=== PATIENT | female | born 1985 | race Two or more races ===

== ENCOUNTER 2016-12-16 15:46 | Emergency (ER) | payer MEDICAID, OTHER ==
[2016-12-16 15:53] VITALS: TEMP 97.7
[2016-12-16] MEDS ORDERED: IBUPROFEN 600 MG TAB PO ONE (16:01)
--- NOTE | 2016-12-16 16:46 | EDPHY ---
H & P Time Seen by Provider: 12/16/16 16:29 HPI/ROS: CHIEF COMPLAINT: Back pain HISTORY OF PRESENT ILLNESS: Patient is a 31-year-old female who presents to the emergency department with right mid back pain. It started 1 week ago. It is slowly progressed. It is worse with deep breath and movement. She has no cough, shortness of breath or fever. No leg pain or swelling. No recent travel. No control or hormone therapy. She does not smoke. She does not recall an injury. She has no numbness or tingling. She denies dysuria or frequency. No hematuria. Last menstrual period was 3 months ago. She states her menses are normally irregular and sometimes she does not have a period for 6 months. REVIEW OF SYSTEMS: My complete review of systems is negative except as mentioned in the HPI. Past Medical/Surgical History: Includes prediabetes Past surgical history: Negative Social history: The patient does not smoke Smoking Status: Never smoked Physical Exam: Vitals noted. 126/86, 96, 18, 96% on room air, 36.5 GENERAL: Well-appearing, in no acute distress, alert. HEENT: Eyes normal to inspection, normal pharynx, no signs of dehydration. NECK: No thyromegaly, no lymphadenopathy, supple. RESPIRATORY: Clear to auscultation bilaterally, no rales, rhonchi or wheezing. CVS: Regular rate and rhythm, no rubs, murmurs, or gallops. ABDOMEN: Soft, nontender, nondistended, no organomegaly. BACK: Normal to inspection, no CVA tenderness. Patient has mild right mid back tenderness to palpation. This replicates her pain. I cannot palpate a mass or crepitus. SKIN: Normal color, no rash, warm, dry. No pallor. EXTREMITIES: No pedal edema, no calf tenderness, no Homans sign or cords, no joint swelling. NEURO/PSYCH: Alert and oriented, normal mood and affect, normal motor sensory exam. Constitutional: Initial Vital Signs Temperature (C) 36.5 C 12/16/16 15:50 Heart Rate 96 12/16/16 15:50 Respiratory Rate 18 12/16/16 15:50 Blood Pressure 126/86 H 12/16/16 15:50 O2 Sat (%) 96 12/16/16 15:50 O2 Delivery Mode Room Air Allergies/Adverse Reactions: Penicillins Allergy (Verified 12/16/16 15:54) Home Medications: Medication Instructions Recorded Cyclobenzaprine [Flexeril] 10 mg PO TID #15 tab 12/16/16 Hydrocodone/APAP 5/325 [[place] 1 - 2 tab PO Q4 #13 tab 12/16/16 5/325 (RX)] metFORMIN SR 12/16/16 Medical Decision Making - Diagnostics Imaging Results: Imaging Impressions Chest X-Ray 12/16/16 17:32 Impression: Chest negative for acute cardiopulmonary abnormality. ED Course/Re-evaluation: In the emergency department I discussed possible etiologies with my patient. I answered all her questions. Laboratory studies were ordered. I will await test before imaging. Patient was given Motrin 600 mg in triage. I gave the patient Valium 5 mg IV. I reviewed the patient's laboratory studies. Her D-dimer was negative. Her was negative. The chest x-ray was ordered. Patient states she was feeling better on recheck. Chest x-ray: No acute disease noted. Please refer the dictated report by the radiologist. 1800: I discussed the results with the patient. I answered all her questions. On recheck the patient was doing well. She was able to breathe better with no pleuritic pain. She was given warnings prior to leaving. She will return with worsening symptoms. Differential Diagnosis: Differential includes but is not limited to PE, pneumonia, pneumothorax, hemothorax, pleurisy, ACS, pyelonephritis, musculoskeletal strain - Data Points Laboratory Results: Laboratory Results 12/16/16 16:55 12/16/16 16:55 12/16/16 12/16/16 12/16/16 16:55 16:55 16:55 WBC RBC Hgb Hct MCV MCH MCHC RDW Plt Count MPV Neut % (Auto) Lymph % (Auto) [place] % (Auto) Eos % (Auto) Baso % (Auto) Nucleat RBC Rel Count Absolute Neuts (auto) Absolute Lymphs (auto) Absolute Monos (auto) Absolute Eos (auto) Absolute Basos (auto) Absolute Nucleated RBC Immature Gran % Immature Gran # D-Dimer 0.39 ug/mLFEU ug/mLFEU (0.00-0.50) Sodium 141 mEq/L mEq/L (134-144) Potassium 4.1 mEq/L mEq/L (3.5-5.2) Chloride 101 mEq/L mEq/L (97-110) Carbon Dioxide 23 mEq/l mEq/l (22-31) Anion Gap 17 mEq/L H mEq/L (8-16) BUN 11 mg/dL mg/dL (7-23) Creatinine 0.5 mg/dL L mg/dL (0.6-1.0) Estimated GFR > 60 Glucose 157 mg/dL H mg/dL (70-100) Calcium 8.9 mg/dL mg/dL (8.5-10.4) Beta HCG, Qual NEGATIVE 12/16/16 16:55 WBC 9.96 10^3/uL H 10^3/uL (3.80-9.50) RBC 5.28 10^6/uL 10^6/uL (4.18-5.33) Hgb 12.5 g/dL L g/dL (12.6-16.3) Hct 39.3 % % (38.0-47.0) MCV 74.4 fL L fL (81.5-99.8) MCH 23.7 pg L pg (27.9-34.1) MCHC 31.8 g/dL L g/dL (32.4-36.7) RDW 15.1 % % (11.5-15.2) Plt Count 388 10^3/uL 10^3/uL (150-400) MPV 9.5 fL fL (8.7-11.7) Neut % (Auto) 64.4 % % (39.3-74.2) Lymph % (Auto) 27.2 % % (15.0-45.0) [place] % (Auto) 5.9 % % (4.5-13.0) Eos % (Auto) 1.9 % % (0.6-7.6) Baso % (Auto) 0.3 % % (0.3-1.7) Nucleat RBC Rel Count 0.0 % % (0.0-0.2) Absolute Neuts (auto) 6.41 10^3/uL 10^3/uL (1.70-6.50) Absolute Lymphs (auto) 2.71 10^3/uL 10^3/uL (1.00-3.00) Absolute Monos (auto) 0.59 10^3/uL 10^3/uL (0.30-0.80) Absolute Eos (auto) 0.19 10^3/uL 10^3/uL (0.03-0.40) Absolute Basos (auto) 0.03 10^3/uL 10^3/uL (0.02-0.10) Absolute Nucleated RBC 0.00 10^3/uL 10^3/uL (0-0.01) Immature Gran % 0.3 % % (0.0-1.1) Immature Gran # 0.03 10^3/uL 10^3/uL (0.00-0.10) D-Dimer Sodium Potassium Chloride Carbon Dioxide Anion Gap BUN Creatinine Estimated GFR Glucose Calcium Beta HCG, Qual Medications Given: Discontinued Medications Diazepam (Valium Injection) 5 mg IVP EDNOW ONE Stop: 12/16/16 16:49 Last Admin: 12/16/16 17:10 Dose: 5 mg Sodium Chloride (Ns) 500 mls @ 0 mls/hr IV ONCE ONE PRN Reason: Wide Open Stop: 12/16/16 17:11 Last Admin: 12/16/16 17:10 Dose: 500 mls Ibuprofen (Motrin) 600 mg PO EDNOW ONE Stop: 12/16/16 16:02 Last Admin: 12/16/16 16:03 Dose: 600 mg Departure - Departure Disposition: Home, Routine, Self-Care Clinical Impression: Back pain Qualifiers: Back pain location: thoracic back pain Chronicity: acute Back pain laterality: right Qualified Code(s): M54.6 - Pain in thoracic spine Condition: Good Instructions: Back Pain (ED) Additional Instructions: Return with increasing pain, shortness of breath, fever or any other concerns. Your x-ray was normal. Referrals: LETI CASTRO,. [Primary Care Provider] - 2-3 days, call for appt. Prescriptions: Cyclobenzaprine [Flexeril] 10 mg PO TID #15 tab Hydrocodone/APAP 5/325 [[place] 5/325 (RX)] 1 - 2 tab PO Q4 #13 tab
[2016-12-16] MEDS ORDERED: DIAZEPAM 10 MG/2 ML SYR IVP ONE (16:48)
[2016-12-16 17:09] LABS: % IMMATURE GRANULYOCYTES 0.3 % (0.0-1.1); ABSOLUTE IMMATURE GRANULOCYTES 0.03 10^3/uL (0.00-0.10); ADD DIFF? NO; ADD MORPH? NO; ADD SCAN? NO; ATYPICAL LYMPHOCYTE FLAG 20 (0-99); FRAGMENT RBC FLAG 0 (0-99); HEMATOCRIT 39.3 % (38.0-47.0); HEMOGLOBIN 12.5 g/dL (12.6-16.3); LEFT SHIFT FLG 0 (0-99); LIPEMIA HEMOLYSIS FLAG 80 (0-99); MEAN CELL HEMOGLOBIN 23.7 pg (27.9-34.1); MEAN CELL HEMOGLOBIN CONCENTR. 31.8 g/dL (32.4-36.7); MEAN CELL VOLUME 74.4 fL (81.5-99.8); MEAN PLATELET VOLUME 9.5 fL (8.7-11.7); PLATELET CLUMPS FLAG 10 (0-99); PLATELET COUNT 388 10^3/uL (150-400); RED BLOOD CELL COUNT 5.28 10^6/uL (4.18-5.33); RED CELL DISTRIBUTION WIDTH 15.1 % (11.5-15.2)
[2016-12-16] MEDS ORDERED: NS 500 ML IV ONE (17:10)
[2016-12-16 17:27] LABS: ANION GAP 17 mEq/L (8-16); CALCIUM 8.9 mg/dL (8.5-10.4); CARBON DIOXIDE 23 mEq/l (22-31); CHLORIDE 101 mEq/L (97-110); CREATININE 0.5 mg/dL (0.6-1.0); GLOMERULAR FILTRATION RATE > 60; GLUCOSE 157 mg/dL (70-100); POTASSIUM 4.1 mEq/L (3.5-5.2); SODIUM 141 mEq/L (134-144)
[2016-12-16 17:55] VITALS: BP 121/81; PULSE 91; RESP 16; O2SAT 94
== END 2016-12-16 18:09 | disposition home or self-care (01) ==
LOC: CED 15:46
DX: M54.6 Pain in thoracic spine (principal)
CPT/HCPCS: 71020-PO; 80048-PO; 84703-PO; 85025-PO; 85378-PO; 96374

== ENCOUNTER 2016-12-25 10:00 | Inpatient (IN) | payer OTHER ==
[2016-12-25] MEDS ORDERED: CLINDAMYCIN 900 MG in NS 100 ML IV ONE (10:34)
[2016-12-25] MEDS ORDERED: DEXAMETHASONE 10 MG/ML VIAL IVP ONE (10:35)
[2016-12-25] MEDS ORDERED: NS 1,000 ML IV ONE ×2 (10:35→12:30)
--- NOTE | 2016-12-25 10:39 | EDPHY ---
H & P Stated Complaint: 1 week sore throat Time Seen by Provider: 12/25/16 10:14 HPI/ROS: CHIEF COMPLAINT: Sore throat and facial swelling History by patient HISTORY OF PRESENT ILLNESS: 31-year-old woman with pre diabetes on metformin presents complaining of 3 days of sore throat, fever to 103 at home, pain with swallowing and speaking and right-sided facial and neck swelling. Patient also complains of a painful lump on the left side of her neck. She has taken some Tylenol with some relief. Her mother was concerned because of the asymmetrical face and neck swelling. She denies any difficulty breathing but does state it is painful to speak. She has had no URI or cough symptoms. There has been no nausea or vomiting. She has been unable to eat solid foods because of her sore throat and has also had a difficult time taking fluids because of the pain. She also says is difficult to sleep because she feels like she can't breathe when she lays flat. REVIEW OF SYSTEMS: As in HPI, and all other systems reviewed and are negative Source: Patient, Family - Personal History LMP (Females 10-55): Extended Cycle BCP/Inj Current Tetanus/Diphtheria Vaccine: No - Medical/Surgical History Hx Asthma: No Hx Chronic Respiratory Disease: No Hx Diabetes: No Hx Cardiac Disease: No Hx Renal Disease: No Hx Cirrhosis: No Hx Alcoholism: No Hx HIV/AIDS: No Hx Splenectomy or Spleen Trauma: No Other PMH: none - Family History Significant Family History: No pertinent family hx - Social History Smoking Status: Never smoked - Physical Exam Exam: General Appearance: Alert and uncomfortable appearing. Morbidly obese. Head: normocephalic, atraumatic, no sinus tenderness, positive right side facial swelling without tenderness or redness Eyes: Pupils equal and round no injection. Extraocular movements intact Ears: TM clear bilat OP: mucus membranes moist, bilateral tonsillar and uvula enlargement, left greater than right, no exudates, no drooling, no floor of the mouth swelling, no stridor Neck: no meningismus, positive left tender cervical node, no submandibular nodes , full range of motion, no meningismus, no right-sided tenderness or mass Respiratory: Chest is nontender, lungs are clear to auscultation. Cardiac: regular rate and rhythm. Gastrointestinal: Abdomen is soft and nontender, no masses, bowel sounds normal. Musculoskeletal: Neck is supple and nontender. Extremities have full range of motion and are nontender. Skin: No rashes or lesions. Constitutional: Initial Vital Signs Temperature (C) 37.5 C 12/25/16 10:05 Heart Rate 107 H 12/25/16 10:05 Respiratory Rate 20 12/25/16 10:05 Blood Pressure 121/76 H 12/25/16 10:05 O2 Sat (%) 95 12/25/16 10:05 O2 Delivery Mode Room Air O2 (L/minute) 2 Allergies/Adverse Reactions: Penicillins Allergy (Verified 12/25/16 10:09) Home Medications: Medication Instructions Recorded metFORMIN SR 12/16/16 Cyclobenzaprine [Flexeril 10 MG 10 mg PO 12/25/16 (*)] Hydrocodone/Acetaminophen [[place] 1 each PO Q4 12/25/16 5/325 (*)] Medical Decision Making - Diagnostics Imaging Results: Imaging Impressions Neck CT 12/25/16 10:35 Impression: Inflammatory changes in the left parapharyngeal soft tissues with a focal 13 x 11 mm fluid collection consistent with a peritonsillar abscess. Results called and discussed with Aruna Madrid MD on 12/25/2016 at 11:58 ED Course/Re-evaluation: 31-year-old woman presents with sore throat, bilateral left greater than right tonsillar swelling and right facial and neck swelling and left tender adenopathy. Rapid strep was positive. Patient was started immediately on IV fluids, IV clindamycin and IV Decadron. Given the bilateral involvement, her difficulty sleeping and swallowing I was concerned about a deep space infection and a CT scan was obtained. This was ead as a left peritonsillar abscess by the radiologist with no evidence of deep space infection. I discussed the case with the BLANK Samuels veterinary practitioner for Ear Nose Throat specialist who based on the findings of a 1.3 x 1.1 cm abscess said this would be too small to drain and she recommended initial medical management and she would follow up the patient in their office tomorrow. On re-evaluation however although the patient felt slightly better after fluids antibiotics and Decadron she was noted to persistently dropped her sats into the 80s. Given her body habitus and the degree of soft tissue swelling I felt the patient should be monitored closely for airway obstruction and have ongoing IV antibiotics. I therefore discussed the case with Adelia Reyes, nurse practitioner veterinary practitioner for the hospitalist who agrees to admission. Patient was then transferred to [facility] for admission. I did update BLANK Samuels about the admission and they will see the patient in the morning. I explained the treatment and plan to the patient and her family who are agreeable. - Data Points Laboratory Results: Laboratory Results 12/25/16 10:41 12/25/16 10:41 12/25/16 12/25/16 12/25/16 10:41 10:41 10:41 WBC 9.68 10^3/uL H 10^3/uL (3.80-9.50) RBC 5.38 10^6/uL H 10^6/uL (4.18-5.33) Hgb 12.8 g/dL g/dL (12.6-16.3) Hct 40.4 % % (38.0-47.0) MCV 75.1 fL L fL (81.5-99.8) MCH 23.8 pg L pg (27.9-34.1) MCHC 31.7 g/dL L g/dL (32.4-36.7) RDW 15.2 % % (11.5-15.2) Plt Count 390 10^3/uL 10^3/uL (150-400) MPV 9.4 fL fL (8.7-11.7) Neut % (Auto) 73.0 % % (39.3-74.2) Lymph % (Auto) 19.5 % % (15.0-45.0) [place] % (Auto) 5.7 % % (4.5-13.0) Eos % (Auto) 1.1 % % (0.6-7.6) Baso % (Auto) 0.4 % % (0.3-1.7) Nucleat RBC Rel Count 0.0 % % (0.0-0.2) Absolute Neuts (auto) 7.06 10^3/uL H 10^3/uL (1.70-6.50) Absolute Lymphs (auto) 1.89 10^3/uL 10^3/uL (1.00-3.00) Absolute Monos (auto) 0.55 10^3/uL 10^3/uL (0.30-0.80) Absolute Eos (auto) 0.11 10^3/uL 10^3/uL (0.03-0.40) Absolute Basos (auto) 0.04 10^3/uL 10^3/uL (0.02-0.10) Absolute Nucleated RBC 0.00 10^3/uL 10^3/uL (0-0.01) Immature Gran % 0.3 % % (0.0-1.1) Immature Gran # 0.03 10^3/uL 10^3/uL (0.00-0.10) Sodium 142 mEq/L mEq/L (134-144) Potassium 4.2 mEq/L mEq/L (3.5-5.2) Chloride 100 mEq/L mEq/L (97-110) Carbon Dioxide 25 mEq/l mEq/l (22-31) Anion Gap 17 mEq/L H mEq/L (8-16) BUN 6 mg/dL L mg/dL (7-23) Creatinine 0.5 mg/dL L mg/dL (0.6-1.0) Estimated GFR > 60 Glucose 118 mg/dL H mg/dL (70-100) Calcium 9.0 mg/dL mg/dL (8.5-10.4) Beta HCG, Qual NEGATIVE Group A Strep Screen 12/25/16 10:04 WBC RBC Hgb Hct MCV MCH MCHC RDW Plt Count MPV Neut % (Auto) Lymph % (Auto) [place] % (Auto) Eos % (Auto) Baso % (Auto) Nucleat RBC Rel Count Absolute Neuts (auto) Absolute Lymphs (auto) Absolute Monos (auto) Absolute Eos (auto) Absolute Basos (auto) Absolute Nucleated RBC Immature Gran % Immature Gran # Sodium Potassium Chloride Carbon Dioxide Anion Gap BUN Creatinine Estimated GFR Glucose Calcium Beta HCG, Qual Group A Strep Screen POSITIVE H (NEGATIVE) Medications Given: Discontinued Medications Dexamethasone (Decadron Injection) 10 mg IVP EDNOW ONE Stop: 12/25/16 10:36 Last Admin: 12/25/16 10:48 Dose: 10 mg Clindamycin 900 mg/ Sodium (Chloride) 106 mls @ 212 mls/hr IV EDNOW ONE PRN Reason: Protocol Stop: 12/25/16 11:03 Last Admin: 12/25/16 10:54 Dose: 106 mls Sodium Chloride (Ns) 1,000 mls @ 0 mls/hr IV ONCE ONE; Wide Open PRN Reason: Protocol Stop: 12/25/16 10:36 Last Admin: 12/25/16 10:43 Dose: 1,000 mls Sodium Chloride (Ns) 1,000 mls @ 0 mls/hr IV ONCE ONE PRN Reason: Wide Open Stop: 12/25/16 12:31 Last Admin: 12/25/16 12:30 Dose: 1,000 mls Departure - Departure Disposition: [facility] Inpatient Acute
[2016-12-25] MEDS ORDERED: IOPAMIDOL (ISOVUE-300) 100 ML BTL ONE (10:52)
[2016-12-25 10:55] LABS: % IMMATURE GRANULYOCYTES 0.3 % (0.0-1.1); ABSOLUTE IMMATURE GRANULOCYTES 0.03 10^3/uL (0.00-0.10); ADD DIFF? NO; ADD MORPH? NO; ADD SCAN? NO; ATYPICAL LYMPHOCYTE FLAG 20 (0-99); FRAGMENT RBC FLAG 0 (0-99); HEMATOCRIT 40.4 % (38.0-47.0); HEMOGLOBIN 12.8 g/dL (12.6-16.3); LEFT SHIFT FLG 0 (0-99); LIPEMIA HEMOLYSIS FLAG 80 (0-99); MEAN CELL HEMOGLOBIN 23.8 pg (27.9-34.1); MEAN CELL HEMOGLOBIN CONCENTR. 31.7 g/dL (32.4-36.7); MEAN CELL VOLUME 75.1 fL (81.5-99.8); MEAN PLATELET VOLUME 9.4 fL (8.7-11.7); PLATELET CLUMPS FLAG 0 (0-99); PLATELET COUNT 390 10^3/uL (150-400); RED BLOOD CELL COUNT 5.38 10^6/uL (4.18-5.33); RED CELL DISTRIBUTION WIDTH 15.2 % (11.5-15.2)
[2016-12-25 11:07] LABS: ANION GAP 17 mEq/L (8-16); CARBON DIOXIDE 25 mEq/l (22-31); CHLORIDE 100 mEq/L (97-110); CREATININE 0.5 mg/dL (0.6-1.0); GLOMERULAR FILTRATION RATE > 60; GLUCOSE 118 mg/dL (70-100); POTASSIUM 4.2 mEq/L (3.5-5.2); SODIUM 142 mEq/L (134-144)
[2016-12-25] MEDS ORDERED: ACETAMINOPHEN 325 MG TAB PO PRN (15:27)
[2016-12-25] MEDS ORDERED: ONDANSETRON 4 MG/2 ML VIAL IVP PRN (15:27)
[2016-12-25] MEDS ORDERED: HYDROmorphONE/DILAUDID 1 MG/ML SYR IVP PRN (15:27)
[2016-12-25] MEDS ORDERED: ONDANSETRON DISINTEGRATING 4 MG TAB PO PRN (15:27)
[2016-12-25] MEDS ORDERED: NS 1,000 ML IV SCH (15:30)
[2016-12-25] MEDS: ERTAPENEM 1 GM in NS 100 ML IV SCH (15:55)
--- NOTE | 2016-12-25 16:10 | GHP ---
[f rep st] HISTORY AND PHYSICAL DATE OF ADMISSION: 12/25/2016 The patient is a pleasant 31-year-old female with a history of obesity and prediabetes who presents with several days of sore throat and fevers at home. Fevers getting progressively worse and has dif ficulty swallowing and eating. She is not short of breath or experiencing stridor. The pain got wo rse today so she sought care. CAT scan demonstrated very small peritonsillar abscess. She does sti ll have her tonsils. She has not had dysphagia. There is no evidence of aspiration. At Urgent Care, she was given antibiotics and steroids. She was found to be somewhat hypoxic. Ther e was no chest imaging. When I speak with the patient, she denies cough or shortness of breath. REVIEW OF SYSTEMS: Complete 10-point review of systems conducted and negative except as noted in th e HPI. PAST MEDICAL HISTORY: 1. Obesity. 2. Prediabetes. ALLERGIES: Penicillins which she gets a rash. HOME MEDICATIONS: Metformin, Flexeril and Percocet. SOCIAL HISTORY: She works at [employer]. No tobacco, no alcohol. FAMILY HISTORY: Notable for heart disease. PHYSICAL EXAM: VITAL SIGNS: Temp 37.1, blood pressure 93/60, pulse 94, breathing 18 times a minute , 91% on room air. GENERAL: No acute distress. HEENT: Sclerae anicteric. Oropharynx is notable for a large tongue, difficult to see her tonsils. She has fairly foul-smelling breath. NECK: Supp le. There is no lymphadenopathy. LUNGS: Clear to auscultation bilaterally. HEART: S1, S2. Not tachycardic. ABDOMEN: Soft, nontender, nondistended. LOWER EXTREMITIES: Without edema. Calves a re nontender. SKIN: Without rash. Neurologic: Nonfocal. Sodium is 142, potassium 4.2, chloride 100, bicarb 25, BUN 6, creatinine 0.5 glucose 118, beta HCG i s negative. She is strep screen positive. White count 9.7, hematocrit 40, platelets are 390,000. CT of the neck shows 1.3 x 1.1 cm peritonsillar abscess on the left. There is cervical lymphadenopa thy. I discussed the case with Dr. Madrid at urgent Care. ASSESSMENT AND PLAN: A 31-year-old female with a peritonsillar abscess and hypoxia. 1. Peritonsillar abscess. She received dexamethasone and clindamycin. I will give her ertapenem a nd continued twice daily dexamethasone. 2. ENT will see her in the morning. 3. She has no stridor evident or difficulty breathing at this point in time. We will follow that scotty hdez. I advised her to promptly notify her nurse if she is having difficulty breathing. 4. Hypoxia. I suspect this is obesity hyperventilation syndrome given her size. Will give her inc entive spirometer to follow. If she has a cough or other reasons, we will consider chest imaging, w ill hold for now. 5. Prophylaxis, high risk. VTE prophylaxis, low molecular heparin. 6. Pain. IV Dilaudid. 7. Disposition: Inpatient status. /[id number]/MODL
[2016-12-25] MEDS: DEXAMETHASONE 4 MG/ML VIAL IVP SCH (20:06)
[2016-12-25] MEDS ORDERED: *PHM DO NOT USE-DEXAMETHASONE 0.2 MG/ML IV PED/NEWBORN SYR IV SCH (21:00)
[2016-12-26 05:44] LABS: % IMMATURE GRANULYOCYTES 0.9 % (0.0-1.1); ABSOLUTE IMMATURE GRANULOCYTES 0.09 10^3/uL (0.00-0.10); ADD DIFF? NO; ADD MORPH? NO; ADD SCAN? NO; ATYPICAL LYMPHOCYTE FLAG 20 (0-99); FRAGMENT RBC FLAG 0 (0-99); HEMATOCRIT 38.2 % (38.0-47.0); HEMOGLOBIN 11.8 g/dL (12.6-16.3); LEFT SHIFT FLG 10 (0-99); LIPEMIA HEMOLYSIS FLAG 80 (0-99); MEAN CELL HEMOGLOBIN 23.6 pg (27.9-34.1); MEAN CELL HEMOGLOBIN CONCENTR. 30.9 g/dL (32.4-36.7); MEAN CELL VOLUME 76.4 fL (81.5-99.8); MEAN PLATELET VOLUME 9.4 fL (8.7-11.7); PLATELET CLUMPS FLAG 0 (0-99); PLATELET COUNT 381 10^3/uL (150-400); RED CELL DISTRIBUTION WIDTH 14.9 % (11.5-15.2)
[2016-12-26 05:53] LABS: INR 1.09 (0.83-1.16)
[2016-12-26 06:11] LABS: ANION GAP 11 mEq/L (8-16); CALCIUM 9.6 mg/dL (8.5-10.4); CARBON DIOXIDE 23 mEq/l (22-31); CHLORIDE 105 mEq/L (97-110); CREATININE 0.5 mg/dL (0.6-1.0); GLOMERULAR FILTRATION RATE > 60; GLUCOSE 140 mg/dL (70-100); POTASSIUM 4.6 mEq/L (3.5-5.2); SODIUM 139 mEq/L (134-144)
[2016-12-26] MEDS: DEXAMETHASONE 4 MG/ML VIAL IVP SCH (08:23)
[2016-12-26] MEDS: ERTAPENEM 1 GM in NS 100 ML IV SCH (08:23)
--- NOTE | 2016-12-26 08:52 | GCON ---
[f rep st] CONSULTATION HISTORY OF PRESENT ILLNESS: This is a 31-year-old female with a history of prediabetes who presents with a several day history of sore throat and fevers. Patient was seen in the Urgent Care and was found to be hypoxic, therefore, sent to the emergency room for further care. She was admitted to [facility] on December 25, [address] scan of her neck showed possible quite small peritonsillar ab scess measuring 13 x 11 mm. Patient was admitted for medical management as this was thought to be t oo small for incision and drainage. Patient was given IV antibiotics as well as IV steroids. Venita nt seen by myself on the morning of December 26, 2016. At this time, she feels much improved. She stat es that her pain has gone from a 9/[address] to a 3/10 or 4/10. She notices swelling in h er neck has resolved. She has never had any like this before. PHYSICAL EXAMINATION: GENERAL: This is a 31-year-old female in no acute distress. HEENT: Voice s essie, no stridor. Head normocephalic, atraumatic. Oropharynx is normal. Slight erythema bilatera l tonsils without significant exudates. She has no soft palate bulge or uvular deviation to suggest peritonsillar abscess. NECK: No significant lymphadenopathy. ASSESSMENT AND PLAN: This is a 31-year-old female, who presented yesterday for evaluation of sore t hroat. CT scan showed possible left-sided peritonsillar abscess. She was medically managed, and e has had significant improvement at this time. At this point, ENT would recommend discharge home f rom a throat standpoint. Will defer to hospitalist for workup of hypoxia if they feel this is furth er necessary. 1. Would recommend discharge home on clindamycin 300 mg t.i.d. for 10 days. 2. Decadron on discharge to be prescribed as 8 mg for 2 days then 4 mg for 2 days. 3. Please give the patient our phone number, , on discharge in order to arrange followu p. Patient should be seen in our office sometime this coming week for further evaluation. Thank you so much for allowing us to participate in the care this patient. If you have any further questions, please do not hesitate to contact our office. /[id number]/MODL
[2016-12-26] MEDS ORDERED: ENOXAPARIN 40 MG/0.4 ML SYR SC SCH (09:00)
[2016-12-26 10:00] VITALS: BP 109/75; PULSE 84; RESP 18; TEMP 98.4; O2SAT 92
--- NOTE | 2016-12-26 20:05 | GDS ---
[f rep st] DISCHARGE SUMMARY DISCHARGE DIAGNOSES: 1. Peritonsillar abscess, improving. 2. History of prediabetes. CONSULTATIONS: BRODY Al. HOSPITAL COURSE AND STAY BY PROBLEM: Peritonsillar abscess: The patient presented to the hospital with a sore throat. A CT of the neck was done that showed a left parapharyngeal soft tissue abscess with a 13 x 11 mm fluid collection. She was started on IV ertapenem and Decadron. On hospital day #1, her sore throat has improved. She is tolerating a diet. She has been seen by ENT who is recom mending that she be discharged on a 10 day course of clindamycin as well as of 4 day course of Decad presley. PHYSICAL EXAM: VITAL SIGNS: On day of discharge, blood pressure 109/75, pulse of 84, respiratory r ate 18, O2 saturation 92% on room air. GENERAL: No acute distress. MOUTH: Posterior oropharynx i s swollen on the left. She is able to tolerate her diet. NECK: She has cervical lymphadenopathy. PERTINENT LABS AND STUDIES DURING THIS HOSPITAL STAY: Neck CT done 12/25/2016, refer to report. DISCHARGE MEDICATIONS: Please refer to discharge medication reconciliation in [facility] for details. DISCHARGE INSTRUCTIONS: The patient will be discharged from the hospital where she should follow up with ENT as scheduled. She was instructed to seek medical attention if her sore throat worsens to the point where she is not able to swallow. /[id number]/MODL
== END 2016-12-26 11:41 | disposition home or self-care (01) | DRG 153 ==
LOC: CED 10:00 → CEDHOLD 12:20 → F3E 14:06 → OBSVTOIN 15:29
PROVIDERS: ADMIT Internal Medicine; ATTEND Family Medicine
DX: J36 Peritonsillar abscess (principal); J02.0 Streptococcal pharyngitis; R73.03 Prediabetes; E66.2 Morbid (severe) obesity with alveolar hypoventilation; R09.02 Hypoxemia; Z68.41 Body mass index [BMI] 40.0-44.9, adult
CPT/HCPCS: 70491-PO; 80048-PO; 84703-PO; 85025-PO; 87880-PO; 96365; J1170; J1335; J1650; Q9967